=== PATIENT | male | born 1980 | race Caucasian/White ===

== ENCOUNTER 2024-03-19 12:50 | Inpatient (IN) | payer MEDICAID, OTHER ==
[~2024-03-19] VITALS: Ht 177.8 cm; Wt 59.6 kg
[2024-03-19 14:59] LABS: COVID AG,FIA SOURCE NASAL SWAB
[2024-03-19 15:25] LABS: SARS-COV2 (COVID) ANTIGEN,FIA Negative (Negative)
[2024-03-19] MEDS ORDERED: HALOPERIDOL 5 MG TABLET PO PRN (19:00)
[2024-03-19] MEDS ORDERED: LORazepam 2 MG TABLET PO PRN (19:00)
[2024-03-19 19:25] VITALS: BP 115/74; PULSE 74; RESP 18; TEMP 97.2
[2024-03-19 21:41] VITALS: BP 124/71; PULSE 74; RESP 18; TEMP 97.5
[2024-03-20] MEDS ORDERED: IBUPROFEN 400 MG TABLET PO PRN (06:30)
[2024-03-20] MEDS ORDERED: ACETAMINOPHEN 325 MG TABLET PO PRN (06:30)
[2024-03-20] MEDS ORDERED: MAGNESIUM HYDROXIDE SUSPENSION 30 ML UDCUP PO PRN (06:30)
[2024-03-20] MEDS ORDERED: ONDANSETRON HCL 4 MG TABLET PO PRN (06:30)
[2024-03-20] MEDS ORDERED: DOCUSATE SODIUM 100 MG CAPSULE PO PRN (06:30)
[2024-03-20] MEDS ORDERED: PETROLATUM,WHITE 28 GM JELLY TP PRN (06:30)
[2024-03-20] MEDS ORDERED: CloNIDine HCL 0.1 MG TABLET PO PRN (06:30)
[2024-03-20] MEDS ORDERED: NICOTINE 14 MG/24 HOUR PATCH TD PRN (06:30)
[2024-03-20] MEDS ORDERED: GuaiFENesin/D-METHORPHAN [SUGAR-FREE] 200-20MG/10 ML SYRUP UDCUP PO PRN (06:30)
[2024-03-20] MEDS ORDERED: LOPERAMIDE HCL 2 MG CAPSULE PO PRN (06:30)
[2024-03-20] MEDS ORDERED: ALBUTEROL SULFATE HFA 90 MCG/PUFF 8 GM INHALER IH PRN (06:30)
[2024-03-20] MEDS ORDERED: MAG HYDROX/ALUMINUM HYD/SIMETH ES 30 ML SUSPENSION UDCUP PO PRN (06:30)
[2024-03-20 13:47] VITALS: BP 93/56; PULSE 68; RESP 17; TEMP 97.7
[2024-03-20 20:46] VITALS: BP 79/49; PULSE 77; RESP 18; TEMP 99.6
[2024-03-21 09:57] VITALS: BP 115/58; PULSE 88; RESP 18; TEMP 97.3
[2024-03-21] MEDS: MELATONIN 3 MG TABLET PO SCH (20:53)
[2024-03-21] MEDS: TraZODone HCL 50 MG TABLET PO SCH (20:53)
[2024-03-21] MEDS: HALOPERIDOL 2 MG TABLET PO SCH (20:53)
[2024-03-21 23:09] VITALS: BP 95/65; PULSE 67; RESP 18; TEMP 97.8
[2024-03-22] MEDS: THIAMINE 100 MG TABLET PO SCH (09:27)
[2024-03-22] MEDS: MULTIVITAMINS, THERAPEUTIC TABLET PO SCH (09:28)
[2024-03-22 14:26] VITALS: BP 77/41; PULSE 52; RESP 18; TEMP 98.7
[2024-03-22 21:06] VITALS: BP 93/55; PULSE 56; RESP 18; TEMP 97.5
[2024-03-23 08:00] VITALS: BP 105/63; PULSE 61; RESP 18; TEMP 98.2
[2024-03-23 20:44] VITALS: BP 93/65; PULSE 72; RESP 18; TEMP 97.3
[2024-03-24 10:07] VITALS: BP 101/64; PULSE 86; RESP 18; TEMP 97.8
[2024-03-24 20:21] VITALS: BP 97/75; PULSE 61; RESP 18; TEMP 97.7
[2024-03-25 08:00] VITALS: BP 98/54; PULSE 78; RESP 18; TEMP 98
[2024-03-25] MEDS: QUEtiapine FUMARATE 25 MG TABLET PO SCH (12:52)
[2024-03-25 22:57] VITALS: BP 116/52; PULSE 66; RESP 17; TEMP 97.9
[2024-03-26 09:17] VITALS: TEMP 97.8
[2024-03-26 20:21] VITALS: BP 110/61; PULSE 64; RESP 18; TEMP 97.8
[2024-03-27 11:16] VITALS: BP 101/45; PULSE 64; RESP 18; TEMP 97.6
[2024-03-27 20:50] VITALS: BP 116/58; PULSE 62; RESP 18; TEMP 99.7
[2024-03-27] MEDS: ZOLPIDEM TARTRATE 10 MG TABLET PO PRN (22:26)
[2024-03-28 12:55] VITALS: BP 102/62; PULSE 77; RESP 18; TEMP 97.9
[2024-03-28] MEDS: QUEtiapine FUMARATE 25 MG TABLET PO SCH (16:14)
[2024-03-28 20:33] VITALS: BP 92/66; PULSE 61; RESP 18; TEMP 97.8
[2024-03-29 10:48] VITALS: BP 113/83; PULSE 56; RESP 18; TEMP 98.6
[2024-03-29 20:58] VITALS: BP 107/57; PULSE 69; RESP 18; TEMP 97.8
[2024-03-30 09:15] VITALS: BP 101/58; PULSE 64; RESP 18; TEMP 98.2
[2024-03-30 20:16] VITALS: BP 131/65; PULSE 64; RESP 18; TEMP 97.5
[2024-03-31 08:19] VITALS: BP 121/50; PULSE 68; RESP 18; TEMP 97.6
[2024-03-31 20:11] VITALS: BP 121/76; PULSE 72; RESP 18; TEMP 97.4
[2024-04-01 08:02] VITALS: BP 111/83; PULSE 78; RESP 18; TEMP 97.3
[2024-04-01 20:45] VITALS: RESP 18
[2024-04-02 12:14] VITALS: BP 106/58; PULSE 69; RESP 18; TEMP 97.6
[2024-04-02 21:22] VITALS: BP 94/52; PULSE 62; RESP 18; TEMP 98.2
[2024-04-03 09:15] VITALS: BP 134/73; PULSE 82; RESP 19; TEMP 96.9
[2024-04-03 20:28] VITALS: BP 92/56; PULSE 63; RESP 18; TEMP 97.8
[2024-04-04 08:47] VITALS: BP 92/62; PULSE 64; RESP 16; TEMP 97.8
[2024-04-04 20:42] VITALS: BP 91/57; PULSE 61; RESP 18; TEMP 97.7
[2024-04-05 10:46] VITALS: BP 90/59; PULSE 76; RESP 18; TEMP 97.4
[2024-04-05 20:51] VITALS: BP 97/61; PULSE 60; RESP 18; TEMP 97.2
[2024-04-06 09:54] VITALS: BP 137/75; PULSE 70; RESP 18; TEMP 97
[2024-04-06 20:44] VITALS: BP 115/61; PULSE 59; RESP 18; TEMP 97.1
[2024-04-07 09:53] VITALS: BP 137/58; PULSE 74; RESP 18; TEMP 97.4
[2024-04-07 20:00] VITALS: TEMP 97.9
[2024-04-08 08:35] VITALS: BP 138/94; PULSE 92; RESP 18; TEMP 97.3
[2024-04-08 20:01] VITALS: RESP 18
[2024-04-09 09:05] VITALS: BP 113/61; PULSE 73; RESP 17; TEMP 97
[2024-04-09] MEDS ORDERED: MELA3TAB89 PO (16:46)
[2024-04-09] MEDS ORDERED: TRAZ-252 PO (16:47)
[2024-04-09] MEDS ORDERED: QUET25TA PO (16:47)
[2024-04-09] MEDS ORDERED: MULT-14 PO (16:49)
[2024-04-09] MEDS ORDERED: THIA100T80 PO (16:49)
== END 2024-04-09 19:15 | DRG 751 ==
LOC: EMS 12:51 → 3EI 14:44
PROVIDERS: ADMIT Psychiatry & Neurology Psychiatry; ATTEND Psychiatry & Neurology Psychiatry
PROC: GZHZZZZ Group Psychotherapy (ICD-10-PCS; principal; 2024-03-20)
DX: F33.2 Major depressive disorder, recurrent severe without psychotic features (principal); E43 Unspecified severe protein-calorie malnutrition; G10 Huntington's disease; F29 Unspecified psychosis not due to a substance or known physiological condition; I95.9 Hypotension, unspecified; R13.10 Dysphagia, unspecified; G47.00 Insomnia, unspecified; Z79.899 Other long term (current) drug therapy; E03.9 Hypothyroidism, unspecified; Z68.1 Body mass index [BMI] 19.9 or less, adult; R47.1 Dysarthria and anarthria
CPT/HCPCS: 92526; 92610; 99285; Z7502; Z7610